=== PATIENT | male | born 1980 | race African-American/Black ===

== ENCOUNTER 2018-09-07 05:55 | Emergency (ER) | payer MEDICAID, OTHER ==
[~2018-09-07] VITALS: Ht 182.9 cm; Wt 87.0 kg
[2018-09-07] MEDS ORDERED: HYDRALAZINE 20MG/ML VIAL IV ONE (07:45)
[2018-09-07] MEDS ORDERED: KETOROLAC 30MG/ML VIAL IV ONE (08:30)
[2018-09-07 08:32] LABS: BASOPHILS % 0.9 % (0.0-2.0); EOSINOPHILS % 0.9 % (0.0-5.0); HEMATOCRIT. 44.8 % (42.0-52.0); HEMOGLOBIN. 15.7 g/dL (14.0-18.0); LYMPHOCYTES % 24.6 % (20.0-50.0); MEAN CORPUSCULAR HEMOGLOBIN 32.4 pg (28.0-32.0); MEAN CORPUSCULAR VOLUME 92.5 fL (80.0-94.0); MEAN PLATELET VOLUME 8.4 fl (7.4-10.4); MONOCYTES % 5.7 % (2.0-8.0); NEUTROPHILS % 67.9 % (40.0-76.0); PLATELET 232 x1000/uL (130-400); RED BLOOD CELL COUNT 4.84 mill/uL (4.7-6.1); RED CELL DISTRIBUTION WIDTH 12.7 % (11.6-14.6)
[2018-09-07 08:37] LABS: CLARITY URINE CLEAR (CLEAR); KETONES URINE NEGATIVE (NEGATIVE); LEUKOCYTE ESTERASE URINE NEGATIVE (NEGATIVE); NITRITE URINE NEGATIVE (NEGATIVE); OCCULT BLOOD URINE NEGATIVE (NEGATIVE); PH URINE 7.5 (4.5-8.0); PROTEIN URINE 2+ (NEGATIVE); SPECIFIC GRAVITY URINE 1.014 (1.005-1.030); UROBILINOGEN URINE 0.2 E.U./dL (0.2-1.0)
[2018-09-07 08:40] LABS: COLOR URINE PALE YELLOW (YELLOW)
[2018-09-07 08:45] LABS: CHLORIDE 93 mEq/L (98-107)
[2018-09-07 08:49] LABS: ETHANOL BLOOD < 10 mg/dL
[2018-09-07 08:52] LABS: *AMPHETAMINES SCREEN URINE NEGATIVE (NEGATIVE); *BENZODIAZEPINES SCREEN URINE NEGATIVE (NEGATIVE); *COCAINE SCREEN URINE NEGATIVE (NEGATIVE); CANNABINOID URINE SCREEN PRESUMTIVE POSITIVE (NEGATIVE); METHADONE URINE SCREEN NEGATIVE (NEGATIVE); OPIATES URINE SCREEN NEGATIVE (NEGATIVE)
[2018-09-07 08:53] LABS: *BARBITURATES SCREEN URINE NEGATIVE (NEGATIVE); PHENCYCLIDINE URINE SCREEN PRESUMTIVE POSITIVE (NEGATIVE)
[2018-09-07] MEDS ORDERED: KCL 10MEQ/50ML PREMIX 50 ML IV ONE (09:00)
[2018-09-07] MEDS ORDERED: POTASSIUM CHLORIDE 20MEQ TABLET SR PO ONE (09:00)
[2018-09-07 11:27] VITALS: BP 168/102
== END 2018-09-07 11:28 | disposition home or self-care (01) ==
LOC: ER 07:36
DX: R51 Headache (principal); I16.0 Hypertensive urgency; R80.9 Proteinuria, unspecified; E87.6 Hypokalemia; F12.10 Cannabis abuse, uncomplicated; F17.200 Nicotine dependence, unspecified, uncomplicated; I10 Essential (primary) hypertension; F16.10 Hallucinogen abuse, uncomplicated
CPT/HCPCS: 36415; 70450; 71045; 80053; 80305; 81003; 83735; 85025; 96365; 96375; 99284; G0482; J0360; J1885; J3480; J7050

== ENCOUNTER 2019-11-05 12:13 | Emergency (ER) | payer MEDICAID ==
[~2019-11-05] VITALS: Ht 177.8 cm; Wt 100.0 kg
[2019-11-05 12:15] VITALS: BP 218/152
[2019-11-05 14:16] LABS: EOSINOPHILS % 4.5 % (0.0-5.0); HEMATOCRIT. 43.8 % (42.0-52.0); HEMOGLOBIN. 15.3 g/dL (14.0-18.0); LYMPHOCYTES % 30.3 % (20.0-50.0); MEAN CORPUSCULAR VOLUME 94.2 fL (80.0-94.0); NEUTROPHILS % 56.2 % (40.0-76.0); PLATELET 177 x1000/uL (130-400); RED BLOOD CELL COUNT 4.64 mill/uL (4.7-6.1); RED CELL DISTRIBUTION WIDTH 12.7 % (11.6-14.6)
[2019-11-05 14:25] LABS: CHLORIDE 108 mEq/L (98-107)
[2019-11-05 14:30] LABS: ETHANOL BLOOD < 10 mg/dL
[2019-11-05 15:14] LABS: CLARITY URINE CLEAR (CLEAR); COLOR URINE YELLOW (YELLOW); KETONES URINE NEGATIVE (NEGATIVE); LEUKOCYTE ESTERASE URINE NEGATIVE (NEGATIVE); NITRITE URINE NEGATIVE (NEGATIVE); OCCULT BLOOD URINE NEGATIVE (NEGATIVE); PROTEIN URINE TRACE (NEGATIVE); SPECIFIC GRAVITY URINE 1.008 (1.005-1.030); UROBILINOGEN URINE 0.2 E.U./dL (0.2-1.0)
[2019-11-05 15:31] LABS: *AMPHETAMINES SCREEN URINE PRESUMTIVE POSITIVE (NEGATIVE); *BARBITURATES SCREEN URINE NEGATIVE (NEGATIVE); *BENZODIAZEPINES SCREEN URINE NEGATIVE (NEGATIVE); *COCAINE SCREEN URINE NEGATIVE (NEGATIVE)
[2019-11-05 15:32] LABS: CANNABINOID URINE SCREEN PRESUMTIVE POSITIVE (NEGATIVE); METHADONE URINE SCREEN NEGATIVE (NEGATIVE); OPIATES URINE SCREEN NEGATIVE (NEGATIVE); PHENCYCLIDINE URINE SCREEN PRESUMTIVE POSITIVE (NEGATIVE)
[2019-11-05] MEDS ORDERED: CLONIDINE 0.1MG TABLET PO ONE (17:15)
[2019-11-05] MEDS ORDERED: AMLODIPINE 10MG TABLET PO ONE (17:15)
== END 2019-11-05 18:37 | disposition left against medical advice (07) ==
LOC: ER 12:23
DX: F19.10 Other psychoactive substance abuse, uncomplicated (principal); I10 Essential (primary) hypertension
CPT/HCPCS: 36415; 80053; 80305; 80320; 81003; 85025; 99283; G0480

== ENCOUNTER 2020-04-13 16:18 | Emergency (ER) | payer MEDICAID ==
[~2020-04-13] VITALS: Ht 180.3 cm; Wt 90.0 kg
[2020-04-13] MEDS ORDERED: HYDROCODONE/ACETAMINOPHEN 5/325MG TABLET PO ONE (17:00)
[2020-04-13] MEDS ORDERED: IBUPROFEN 600MG TABLET PO ONE (17:00)
[2020-04-13 18:00] VITALS: BP 169/99
== END 2020-04-13 19:11 | disposition home or self-care (01) ==
LOC: ER 16:18
DX: S69.81XA Other specified injuries of right wrist, hand and finger(s), initial encounter (principal); W22.09XA Striking against other stationary object, initial encounter; Y93.9 Activity, unspecified; Y92.9 Unspecified place or not applicable; I10 Essential (primary) hypertension
CPT/HCPCS: 73130; 99283

== ENCOUNTER 2023-09-30 12:15 | Emergency (ER) | payer MEDICAID ==
[~2023-09-30] VITALS: Ht 180.3 cm; Wt 90.0 kg
[2023-09-30 12:16] VITALS: BP 149/115; PULSE 92; RESP 16; TEMP 98.4; O2SAT 98
== END 2023-09-30 15:30 | disposition home or self-care (01) ==
LOC: ER 12:15
DX: F19.90 Other psychoactive substance use, unspecified, uncomplicated (principal); F10.90 Alcohol use, unspecified, uncomplicated; I10 Essential (primary) hypertension; Y90.9 Presence of alcohol in blood, level not specified
CPT/HCPCS: 82962; 99283